=== PATIENT | male | born 1970 | race Caucasian/White ===

== ENCOUNTER 2020-12-13 09:34 | Outpatient (REF) | payer BC, SELFPAY ==
[2020-12-13 21:16] LABS: ALT 46 U/L (16-63); AST 15 U/L (15-37); Albumin 3.9 g/dL (3.4-5.0); Alkaline Phosphatase 71 U/L (46-116); Anion Gap 11.1 mmol/L (3-11); BUN 13 mg/dL (7-18); Bilirubin, Total 0.7 mg/dL (0.2-1.0); CO2 29.9 mmol/L (21.0-32.0); CREATININE 0.9 mg/dL (0.70-1.30); Calcium 9.3 mg/dL (8.5-10.1); Calculated LDL 145 mg/dL (<100); Chloride 100 mmol/L (98-107); Cholesterol 220 mg/dL (<200); Glucose 95 mg/dL (74-106); HDL Cholesterol 69 mg/dL (40-60); Potassium 4.2 mmol/L (3.5-5.1); Sodium 141 mmol/L (136-145); Total Protein 6.8 g/dL (6.4-8.2); Triglyceride 30 mg/dL (<150)
== END 2020-12-13 09:35 | disposition home or self-care (01) ==
LOC: NCHCN 09:34
PROVIDERS: Visit Provider Nurse Practitioner Family
DX: Z13.220 Encounter for screening for lipoid disorders (principal)
CPT/HCPCS: 80053; 80061

== ENCOUNTER 2021-07-11 03:10 | Outpatient (CLI) | payer BC, SELFPAY ==
[2021-07-11 12:15] LABS: Source Nasal/Nares
[2021-07-11 15:33] LABS: COVID-19 PCR Negative (Negative)
== END 2021-07-11 03:11 | disposition home or self-care (01) ==
LOC: LBO 03:10
PROVIDERS: PCP Nurse Practitioner Family; Visit Provider Surgery
DX: Z20.822 Contact with and (suspected) exposure to COVID-19 (principal); Z01.818 Encounter for other preprocedural examination
CPT/HCPCS: 87635

== ENCOUNTER 2021-07-13 07:01 | Day surgery (SDC) | payer BC, SELFPAY ==
--- NOTE | 2021-07-13 06:33 | W.PM.ENDDOP ---
Date of service: 07/13/21 Time of Service: 08:16 Endoscopy Report DATE OF PROCEDURE: 07/13/21 PRE-OP DIAGNOSIS: GERD POST-OP DIAGNOSIS: other (duodenitis, esophagitis) PROCEDURE: EGD with biopsies SURGEON: Deb Bone ANESTHESIA TYPE: General:No Airway (Luis Freeman, LEONA) ESTIMATED BLOOD LOSS: 3 PATHOLOGY: other (duodenal bx, antrum bx, GE junction bx) COMPLICATIONS: None DISPOSITION: same day INDICATIONS: -Discussed Upper endoscopy procedure and the need to be NPO after midnight the night prior. Discussed possible complications of the procedure to include bleeding, pain, perforation, missed small lesion/polyp/ulcers, sore throat, aspiration and adverse reaction to the medications or sedation. Questions were answered to patient?s satisfaction. No guarantees were implied or given. I spent 30 minutes in reviewing the record, seeing the patient, providing patient education, answering patient's questions and documenting in the medical record. PROCEDURE START TIME: 08:16 PROCEDURE END TIME: 08:26 FINDINGS: Mild duodenitis, mild gastritis, esophagitis PROCEDURE DESCRIPTION: After informed consent was obtained the patient was take to the procedure room and placed in a supine position. Monitors were applied and a time out was done. The patients name, date of , procedure type, allergies to medications and metal in their body was reviewed. A bite block was placed and the patient was sedated. Once sedated and comfortable the gastroscope was advanced through the oropharynx which was grossly normal into the esophagus. The proximal and mid-esophagus were normal. In the distal esophagus there was moderate esophagitis noted. The scope was advanced into the stomach and through the pylorus into the 3rd portion of the duodenum. The duodenum was noted to have some mild inflammation at D2. Biopsies were done. The scope was retracted back into the stomach. There was mild inflammation. Biopsies were done to rule out H. pylori. There were no ulcers. The scope was retroflexed. The cardia and fundus were noted to be normal. There was no hiatal hernia noted. The scope was retracted back into the esophagus and biopsies were done of the GE junction to rule out Enciso's. The Z line was regular. The GE junction was at 40 cm. The scope was removed and the patient was woken up and taken back to [facility] in stable condition. Follow up: Will depend on the biopsy results. Recommend patient start back on a PPI.
--- NOTE | 2021-07-13 06:34 | W.PM.DSUDISC ---
Discharge Plan Disposition Patient Disposition: HOME Condition: Good Discharge Details Reason For Visit: EGD Attending Provider: Deb Bone Primary Care Provider: Teri Beckford Home Meds and New Rx's Prescriptions: Continued omeprazole 40 mg capsule,delayed release(DR/EC) 40 mg PO DAILY Qty: 30 RF: 1 calcium carbonate [Tums] 200 mg calcium (500 mg) tablet,chewable 200 mg PO DAILY RF: 0 sildenafil [Viagra] 25 mg Tablet 25 mg PO DAILY PRNRF: 0 acetaminophen 500 mg Capsule 1,000 mg PO Q6H PRNRF: 0 Discontinued polyethylene glycol 3350 17 gram/dose powder 238 g PO ONCE Qty: 238 RF: 0 bisacodyl [Dulcolax (bisacodyl)] 5 mg tablet,delayed release (DR/EC) 5 mg PO ONCE Qty: 4 RF: 0 Discharge Instructions Instructions: Diet for Stomach Ulcers and Gastritis (ED), Duodenitis (DC), Esophagitis (DC) Additional Instructions: Findings: Mild inflammation in the small bowel (duodenum) and esophagus Follow up: will depend on the pathology results. Medication: You do have reflux. I recommend starting back on Omeprazole daily Please call if you develop: fevers >101.5 Nausea or Vomiting Abdominal pain that is not transient Rectal bleeding that is more then a tbsp A hard abdomen and inability to pass gas DAY SURGERY UNIT POST ENDOSCOPY INSTRUCTIONS Instructions for everyone who is given Anesthesia: For your safety, please do the following for the next 24 Hours: a. Do not drive or operate dangerous equipment b. Do not drink alcohol beverages or use any recreational drugs for the first 24 hours or while taking pain medications. The medications in your body may have a reaction that can be dangerous. c. Do not make any important decisions or sign any important papers 1. Generally there are no restrictions on your activity after a day or so has gone by, but you may feel a bit fatigued for a few days. 2. After you arrive home you may have a light meal and return to a normal diet as you can tolerate it without feeling sick to your stomach. 3. After surgery, you may feel pain or discomfort. This should be only transient, but if it persists please contact your doctor. 4. If there are any questions regarding the findings of your procedure, please feel free to contact your doctor. 6. If you are unable to contact your doctor with a problem, contact the hospital at [phone]. 7. Continue all your regular medications unless directed otherwise. I understand the above instructions and have no questions. Signature of Patient or Responsible Adult Escort Date/Time Name of Responsible Adult Escort Signature of Nurse Date/Time Activity:: Activity as Tolerated Diet:: low acid, no alcohol Discharge Orders Discharge Orders: Discharge Order (Routine); Ordered 07/13/21 Ordered By: Deb Bone
[2021-07-13 07:05] VITALS: BP 118/77; PULSE 70; RESP 18; TEMP 36.4; O2SAT 99
[2021-07-13] MEDS: Lactated Ringers 1,000 ML 80 ML IV (07:33)
--- NOTE | 2021-07-13 08:02 | W.ANESPRE ---
General Info Date of Service Date Performed: 07/13/21 Height: 5 ft 6 in Weight: 68.6 kg Body Mass Index (BMI): 24.4 Surgical Procedure: Operation Date: 07/13/21 08:35 Proposed Procedures Side Surgeon p Gastroscopy Deb Bone MD Meds Allergies and Home Medications Allergies Allergy/AdvReac Type Severity Reaction Status Date / Time Penicillins AdvReac Mild itching Verified 07/13/21 07:15 Home Medication Medication Instructions Recorded omeprazole 40 mg capsule,delayed 40 mg PO DAILY #30 cap 04/11/21 release bisacodyl 5 mg tablet,delayed 5 mg PO ONCE #4 tab 06/17/21 release calcium carbonate 200 mg calcium 200 mg PO DAILY tab 06/17/21 (500 mg) chewable tablet polyethylene glycol 3350 17 238 g PO ONCE #238 g 06/17/21 gram/dose oral powder sildenafil [Viagra] 25 mg PO DAILY PRN 07/11/21 acetaminophen [Tylenol Extra 1,000 mg PO Q6H PRN 07/13/21 Strength] Current Visit Medications: Current Medications Generic Name Dose Route Start Last Admin Trade Name Freq PRN Reason Stop Dose Admin Hyoscyamine Sulfate 0.125 mg 07/13/21 06:35 Hyoscyamine 0.125 Mg Sl/Oral/Chew SL DIRECTED PRN Ringer's Solution 1,000 mls @ 80 mls/hr 07/13/21 06:00 07/13/21 07:33 IV 08/01/21 23:59 80 mls/hr INFUSION SHERRIE Administration IV Miscellaneous Supplies 1 each 07/13/21 06:00 Iv Access IV 08/01/21 23:59 DIRECTED SHERRIE Ondansetron HCl 4 mg 07/13/21 06:35 Ondansetron 4 Mg/2 Ml Vial IVP Q4H PRN PRN Nausea / Vomiting Sodium Chloride 0 ml 07/13/21 06:00 Normal Saline Flush 10 Ml Syr IV 08/01/21 23:59 PRN PRN Sodium Chloride 0 ml 07/13/21 06:00 Normal Saline 10 Ml Vial IJ 08/01/21 23:59 DIRECTED PRN Sterile Water 0 ml 07/13/21 06:00 Water,Injection,Sterile 10 Ml Vial IJ 08/01/21 23:59 DIRECTED PRN PFSH Active Problems Active Problems: Problem Status Onset Code Enlarged thyroid E04.9 Globus sensation R09.89 Throat discomfort R07.0 Laryngopharyngeal reflux K21.9 GERD (gastroesophageal reflux disease) K21.9 Medical History Medical History Cerumen impaction GERD (gastroesophageal reflux disease) GERD (gastroesophageal reflux disease) History of back problems History of cigarette smoking Marijuana smoker Daily Marijuana use Pain in joints of left hand Pain in joints of right hand Right knee pain history of knee locking up Screening for colon cancer Screening for hyperlipidemia Sensation of foreign body in throat Surgical History Surgical History H/O tooth extraction Tobacco Smoking/Tobacco Use Status: Former Tobacco Use Alcohol Alcohol Intake: current Alcohol intake frequency: 3 or more drinks per day Alcohol type: beer Substance Use Substance use: Daily Substance use type: marijuana Vital Signs and Lab Results Vital Signs Most Recent Vital Signs in EMR: Most Recent Vital Signs Temp Pulse Resp BP Pulse Ox 36.4 C L 70 18 118/77 99 07/13/21 07:05 07/13/21 07:05 07/13/21 07:05 07/13/21 07:05 07/13/21 07:05 Lab Results Blood Type / Crossmatch: No Data to Display Complete Blood Count: No Data to Display Complete Metabolic Panel: No Data to Display Liver Function Panel: No Data to Display Coagulation Panel: No Data to Display Cardiac Panel: No Data to Display Arterial Blood Gas: No Data to Display Venous Blood Gas: No Data to Display Pancreas Panel: No Data to Display Thyroid Panel: No Data to Display Infectious Disease: Coronavirus (COVID-19)(PCR) Negative (Negative) 07/11/21 10:02 07/11/21 Coronavirus 2019 Source Nasal/Nares 07/11/21 10:02 07/11/21 Blood Cultures: No Data to Display Toxicology Panel: No Data to Display Anesthesia Assessment and Plan Anesthesia History Personal History: No History of Anesthesia Complications Family History: No Family History of Anesthesia Complications Exercise Tolerance Exercise Tolerance: Metabolic Equivalents>4 Pertinent Negatives Pertinent Negatives: No Symptoms of GERD (Well controlled with baking soda), No Major Cardiovascular Symptoms or Complaints, No Major Pulmonary Symptoms or Complaints and No History of CVA/TIA Cardiac & Pulmonary Exam Cardiac Exam: Normal S1/S2 Heart Sounds Pulmonary Exam: Clear Bilateral Breath Sounds Implantable Cardiac Device Does patient have a Pacemaker or an ICD?: No Airway Exam Known Difficult Airway: No Mallampati Class: 1 Mouth Opening: Normal (> 3cm) Thyromental Distance: Greater than 3 cm Facial Hair: Full [place] Neck Range of Motion: Full ROM Neck Circumference: Normal Teeth Condition: Normal Dentition ASA Classification ASA Score: ASA 2 Emergency Case?: No NPO Status NPO Status: NPO Clears >2 hours, Solids >8 hours Anesthesia Plan Resuscitation Status: Full Code Anesthesia Technique: General Anesthesia Airway Planned: Natural Airway Monitors Used: Standard Monitors
[2021-07-13 08:03] VITALS: BMI 24.4
--- NOTE | 2021-07-13 08:20 | STOM_PTH ---
PATIENT: Jeramy Wilburn JR LOC: [facility] U#:[id number] AGE/SX: 51/M ROOM: RE07/13/[address]: Deb Bone MD : 1970 BED: DIS: 07/13/2021 SPEC #: [id number] RECD: 07/13/21 12:40 STATUS: DENITA RE #: [id number] AMOL: 07/13/21 08:[address]: Deb Bone DEPT: Surgical Specimen RECD BY: Sury Delcid ENTERED: 07/13/21 12:41 SP TYPE: STOMACH OTHR DR: Moncho Beckford Tissues: 1 - BIOPSY BOWEL 2 - STOMACH BIOPSY 3 - ESOPHAGUS BIOPSY Procedures: GROSS AND MICRO LEVEL 4 Comments: [id number]
[2021-07-13 08:35] VITALS: BP 123/86; PULSE 79; RESP 16; TEMP 36.1; O2SAT 100
[2021-07-13 09:00] VITALS: BP 120/87; PULSE 68; RESP 16; TEMP 36; O2SAT 99
--- NOTE | 2021-07-13 09:10 | W.ANESPOSTOP ---
Postoperative Evaluation Date, Time and Location Date Performed: 07/13/21 Time Performed: 09:10 Patient Location: Day Surgery Unit Vital Signs Most Recent Imported Vital Signs: Most Recent Vital Signs Temp Pulse Resp BP Pulse Ox 36 C L 68 16 120/87 99 07/13/21 09:00 07/13/21 09:00 07/13/21 09:00 07/13/21 09:00 07/13/21 09:00 Pain Score Most Recent Pain Score: Most Recent Pain Score Pain Level 0 07/13/21 09:00 Assessment Mental Status: Awake (Alert & Oriented to Patient Baseline) Airway and Respiratory Function: Patent airway with normal (patient baseline) respiratory exam Cardiovascular Function: Hemodynamically Stable Hydration Status: Adequately Hydrated Nausea & Vomiting: No Nausea or Vomiting Pain: Pt. Denies Any Pain Peripheral Nerve Block: Patient did not receive a nerve block
== END 2021-07-13 09:25 | disposition home or self-care (01) ==
LOC: SUR 07:01
PROVIDERS: PCP Nurse Practitioner Family; Visit Provider Surgery
PROC: 0DJ68ZZ Inspection of Stomach, Via Natural or Artificial Opening Endoscopic (ICD-10-PCS; CPT 43235; principal; 2021-07-13 08:30)
DX: K21.00 Gastro-esophageal reflux disease with esophagitis, without bleeding (principal); K29.70 Gastritis, unspecified, without bleeding; K29.80 Duodenitis without bleeding
CPT/HCPCS: 43239; 88305; J2001